=== PATIENT | female | born 1940 | race Caucasian/White ===

== ENCOUNTER 2017-05-10 10:22 | Outpatient (CLI) | payer MEDICARE, OTHER ==
[2017-05-10 11:15] LABS: eGFR (African) > 60; eGFR (Non-African) > 60
== END 2017-05-10 10:30 ==
LOC: LAB 10:22
PROVIDERS: ATTEND Family Medicine
DX: I10 Essential (primary) hypertension (principal)
CPT/HCPCS: 36415; 80048

== ENCOUNTER 2019-04-29 10:16 | Outpatient (CLI) | payer MEDICARE, OTHER ==
[2019-04-29 10:45] LABS: eGFR (Non-African) 36
== END 2019-04-29 10:21 ==
LOC: LAB 10:16
PROVIDERS: ATTEND Nurse Practitioner Family
DX: M06.9 Rheumatoid arthritis, unspecified (principal)
CPT/HCPCS: 36415; 82565

== ENCOUNTER 2019-05-01 14:37 | Emergency (ER) | payer MEDICARE, OTHER ==
--- NOTE | 2019-05-01 14:57 | ED Physician Documentation ---
Female Urogenital Problems - HISTORIAN Historian: patient - HPI Stated Complaint: S/s UTI Chief Complaint: Female Urogenital Problems Additional Information: Patient presents to ED with a 2 day history of urinary frequency and fever (102.0). She admits to some nausea today. Onset: days ago (2) Severity: moderate Location of Pain: denies: low back pain, flank pain - Vaginal Bleeding Sexual History: inactive - Associated Symptoms Urinary Symptoms: frequent urination, urgency w/ urination - ROS CONST: fever GI/: nausea. denies: vomiting CVS/RESP: denies: chest pain, shortness of breath EYES/ENT: denies: problems with vision NEURO/PSYCH: denies: headache MS/SKIN/LYMPH: denies: rash - PAST HX Past History: none Other History: none Allergies/Adverse Reactions: Allergies Allergy/AdvReac Type Severity Reaction Status Date / Time morphine Allergy Verified 05/01/19 14:57 Home Medications: Ambulatory Orders Medication Instructions Recorded CiproFLOXacin HCL [Cipro] 500 mg PO BID #14 tablet 05/01/19 Levothyroxine Sodium [Levo-T] 1 tab PO DAILY 05/01/19 Ondansetron HCl Rapdis [Zofran Odt] 4 mg PO Q8 PRN #15 tab 05/01/19 - SOCIAL HX Smoking History: cigarettes Alcohol Use: none Drug Use: none - FAMILY HX Family History: none - VITAL SIGNS Vital Signs: Vital Signs Temp Pulse Resp BP Pulse Ox 98.2 F 92 H 15 106/72 93 05/01/19 14:40 05/01/19 14:40 05/01/19 14:40 05/01/19 14:40 05/01/19 14:40 - REVIEWED ASSESSMENTS Nursing Assessment Reviewed: Yes Vitals Reviewed: Yes Female Urogenital Problems - EXAM General Appearance: no acute distress, alert EENT: BEBE Neck: nml inspection Respiratory: no resp. distress, breath sounds nml CVS: reg rate & rhythm, heart sounds normal Abdomen: soft, non-tender, no distention, nml bowel sounds Back: non-tender. No: CVA tenderness Skin: color nml, no rash, warm,dry Extremities: non-tender, normal range of motion, no evidence of injury Neuro: oriented X3, mood/affect nml Discharge Clincal Impression: Acute cystitis without hematuria Prescriptions: CiproFLOXacin HCL [Cipro] 500 mg PO BID #14 tablet Ondansetron HCl Rapdis [Zofran Odt] 4 mg PO Q8 PRN #15 tab PRN Reason: nausea/vomiting Referrals: Mabel Sauceda MD [Primary Care Provider] - 2 Days Additional Instructions: 1. take antibiotics until gone 2. Tylenol 650mg every 4 hours as needed for fever/pain 3. Drink plenty of fluids. Avoid soda, caffeine, energy drinks and alcohol 4. Follow up with PCP within 1 week 5. Return to ER for new or worsening symptoms Condition: Stable Disposition: 01 HOME, SELF-CARE Decision to Admit: NO Date of Decison to Admit: 05/01/19 Decision Time: 15:02
[2019-05-01 15:00] VITALS: BP 106/72
[2019-05-01] MEDS: ONDANSETRON HCL 4 MG TAB.RAPDIS PO ONE (15:03)
[2019-05-01 15:19] LABS: APPEARANCE,URINE CLOUDY (CLEAR); COLOR,URINE YELLOW (YELLOW); OCCULT BLOOD,URINE 1+ (NEGATIVE); UROBILINOGEN URINE 0.2 Eu (0.2-1.0)
== END 2019-05-01 15:08 | disposition home or self-care (01) ==
LOC: ED 14:37
DX: N30.00 Acute cystitis without hematuria (principal)
CPT/HCPCS: 81002; 87086; 87186; 99283; 99284; A9270

== ENCOUNTER 2019-05-03 10:35 | Outpatient (CLI) | payer MEDICARE, OTHER | END 2019-05-03 10:40 | LOC: LAB 10:35 | PROVIDERS: ATTEND Otolaryngology | DX: C73 Malignant neoplasm of thyroid gland (principal) | CPT/HCPCS: 36415; 84432; 86800 ==